=== PATIENT | female | born 1995 | race Caucasian/White ===

== ENCOUNTER → 2017-04-08 | Outpatient (CLI) | payer OTHER ==
[~2017-04-08] MED LIST: CLIN1CAP5 PO; NAPR500 PO; PERC5TAB12 PO; Z.0.BCPILL PO
[2017-04-08 17:38] LABS: ANION GAP 11 MEQ/L (5-15); AST (GOT) 7 U/L (15-37); BLOOD UREA NITROGEN 9 MG/DL (7-18); CHLORIDE 101 MEQ/L (98-107); GLOMERULAR FILTRATION RATE 128 ML/MIN (>89); POTASSIUM 3.5 MEQ/L (3.5-5.1); SODIUM (NA) 136 MEQ/L (136-145)
[2017-04-08 17:40] LABS: ALT (GPT) 16 U/L (10-53)
[2017-04-08 17:41] LABS: ALKALINE PHOSPHATASE 92 U/L (45-117); TOTAL BILIRUBIN ADULT 0.4 MG/DL (0.2-1.0)
[2017-04-08 17:43] LABS: AUTOMATED NEUTROPHIL # 11.1 TH/MM3 (1.8-7.7); BASOPHIL % 0.2 % (0.0-2.0); EOSINOPHIL # 0.1 TH/MM3 (0-0.4); EOSINOPHIL % 0.4 % (0.0-4.0); HEMATOCRIT 39.2 % (35.0-46.0); HEMO FLAGS DIFF FINAL; LYMPH % 13.5 % (9.0-44.0); LYMPHOCYTE # 1.9 TH/MM3 (1.0-4.8); MEAN CELL VOLUME 83.2 FL (80.0-100.0); MEAN CORPUSCULAR HEMOGLOBIN 26.1 PG (27.0-34.0); MEAN CORPUSCULAR HGB CONC 31.3 % (32.0-36.0); MONO % 6.5 % (0.0-8.0); NEUT % 79.4 % (16.0-70.0); PLATELET COUNT 279 TH/MM3 (150-450); RED BLOOD COUNT 4.72 MIL/MM3 (4.00-5.30); RED CELL DISTRIBUTION WIDTH 13.9 % (11.6-17.2)
== END ==
LOC: PLAB 13:46
PROVIDERS: ATTEND Family Medicine
DX: J02.9 Acute pharyngitis, unspecified (principal); R50.9 Fever, unspecified; R59.0 Localized enlarged lymph nodes
CPT/HCPCS: 80053; 85025; 86308

== ENCOUNTER 2017-10-15 15:17 | Emergency (ER) | payer SELFPAY ==
[~2017-10-15] VITALS: Ht 165.1 cm; Wt 65.0 kg
[2017-10-15 15:19] VITALS: BP 142/78; PULSE 98; RESP 20; TEMP 98.5; O2SAT 100
[2017-10-15] MEDS ORDERED: BIRTH CONTROL (15:48)
--- NOTE | 2017-10-15 15:48 | PD ---
HPI Chief Complaint: Skin Problem Time Seen by Provider: 15:41 Travel History International Travel<30 days: No Contact w/Intl Traveler<30days: No Traveled to known affect area: No History of Present Illness HPI 22-year-old female presents to the emergency department for evaluation of a painful lesion on her the proximal aspect of her right medial thigh. Patient has had cysts in the passively this may be another cyst. She does report noticing a small lesion about 2 weeks ago but it has increased in size. Denies any fever or chills. It is painful when her underwear rubs up against it and it is painful when wearing tight pants. She also reports lymph nodes that are swollen in her inguinal area. Denies any new injury. No vaginal discharge or drainage. She has no other symptoms to report. PFSH Past Medical History Medical History: Denies Significant Hx Developmental Delay: No Immunizations Current: Yes ?: Not LMP: 10/05/17 : 1 Para: 1 Past Surgical History Section: Yes Tonsillectomy: Yes Social History Alcohol Use: No Tobacco Use: No Substance Use: No Allergies-Medications (Allergen,Severity, Reaction): Coded Allergies: No Known Allergies (Unverified , 06/18/16) Reported Meds & Prescriptions Reported Meds & Active Scripts Active Ibuprofen 600 Mg Tab 600 Mg PO Q8HR PRN Keflex (Cephalexin) 500 Mg Capsule 500 Mg PO Q6H 5 Days Bactrim DS (Sulfamethoxazole-Trimethoprim) 800-160 Mg Tab 1 Tab PO BID Reported [ Control] DAILY Review of Systems Except as stated in HPI: all other systems reviewed are Neg Physical Exam Narrative GENERAL: Well-nourished, well-developed female patient, ambulatory and in no acute distress. SKIN: There is an indurated area in the proximal right medial thigh which measures about 3 cm in diameter. It is fluctuant but there is no pointing or drainage. There is a zone of inflammation around it but no lymphangitis. HEAD: Normocephalic. EYES: No scleral icterus. No injection or drainage. NECK: Supple, trachea midline. No JVD or lymphadenopathy. CARDIOVASCULAR: Regular rate and rhythm without murmurs, gallops, or rubs. RESPIRATORY: Breath sounds equal bilaterally. No accessory muscle use. GASTROINTESTINAL: Abdomen soft, non-tender, nondistended. MUSCULOSKELETAL: No cyanosis, or edema. There is palpable we'll lymphadenopathy on the right. BACK: Nontender without obvious deformity. No CVA tenderness. Data Data Last Documented VS Vital Signs Date Time Temp Pulse Resp B/P (MAP) Pulse Ox O2 Delivery O2 Flow Rate FiO2 10/15/17 15:19 98.5 98 20 142/78 (99) 100 Room Air Orders Orders Wound Culture And Gram Stain (10/15/17 15:59) Ibuprofen (Motrin) (10/15/17 16:00) Ed Discharge Order (10/15/17 16:00) MDM Medical Decision Making Medical Screen Exam Complete: Yes Emergency Medical Condition: Yes Medical Record Reviewed: Yes Differential Diagnosis Abscess versus folliculitis versus cyst Narrative Course 22-year-old female presents to the emergency department for evaluation of a painful lesion on the medial aspect of her right proximal thigh. Physical exam is consistent with an abscess. ID is completely without difficulty. Patient tolerated this well. She'll be started on oral antibiotics and encouraged follow-up with her primary care provider. She agrees to return immediately with any acute worsening of symptoms. Procedures Procedure Narrative INCISION AND DRAINAGE OF ABSCESS: The area was prepped and was sterilely draped. Topical ethyl chloride was used to anesthetize the area. The area was properly anesthetized. A number 11 scalpel was used to make a [1-cm incision across the area of the abscess. Cultures were obtained. The abscess was drained an irrigated with normal saline. Quarter inch iodoform packing was placed in the wound. Sterile dressing applied. Patient advised to have packing removed in two days. Diagnosis Primary Impression: Groin abscess Referrals: Primary Care Physician Patient Instructions: Abscess Incision and Drainage (DC), General Instructions Additional Instructions: Warm compresses to the affected area Remove packing in 2 days. If it falls out before then, that is okay Start antibiotic and take it until it is all gone Return to the emergency department with any acute worsening of symptoms Med/Other Pt SpecificInfo: Prescription(s) given Scripts Ibuprofen (Ibuprofen) 600 Mg Tab 600 MG PO Q8HR Y for PAIN, #30 TAB 0 Refills Prov: Suzy Han 10/15/17 Cephalexin (Keflex) 500 Mg Capsule 500 MG PO Q6H for Infection for 5 Days, #20 CAP 0 Refills Prov: Suzy Han 10/15/17 Sulfamethoxazole-Trimethoprim (Bactrim DS) 800-160 Mg Tab 1 TAB PO BID for Infection, #20 TAB 0 Refills Prov: Suzy Han 10/15/17 Disposition: 01 DISCHARGE HOME Condition: Stable Suzy Han Oct 15, 2017 15:48
[2017-10-15] MEDS ORDERED: IBUPROFEN 800 MG TAB PO ONE (16:00)
[2017-10-15] MEDS ORDERED: BACT800T5 PO (16:03)
[2017-10-15] MEDS ORDERED: CEPH-460 PO (16:03)
[2017-10-15] MEDS ORDERED: IBUP-232 PO (16:03)
== END 2017-10-15 16:04 | disposition home or self-care (01) ==
LOC: NEPD 15:17
DX: L02.214 Cutaneous abscess of groin (principal)
CPT/HCPCS: 10060; 87070; 87205

== ENCOUNTER 2018-03-11 04:16 | Emergency (ER) | END 2018-03-11 06:52 | disposition home or self-care (01) | DX: J10.1 Influenza due to other identified influenza virus with other respiratory manifestations (principal); N39.0 Urinary tract infection, site not specified | CPT/HCPCS: 80053; 81001; 83605; 83690; 84703; 85025; 87081; 87086; 87804; 87880; 96360; 96372; 99284; J1885; J7030 ==